=== PATIENT | female | born 1975 | race Caucasian/White ===

== ENCOUNTER 2020-08-07 13:20 | Emergency (ER) | payer BC, OTHER ==
--- NOTE | 2020-08-07 13:37 | EDM.PDOC ---
ED HPI GENERAL MEDICAL PROBLEM - General Stated Complaint: STITCHES CAME OUT OF INCISION Time Seen by Provider: 08/07/20 13:20 Source of Information: Reports: Patient, Family History Limitations: Reports: No Limitations - History of Present Illness INITIAL COMMENTS - FREE TEXT/NARRATIVE: c/o sutures out pt saw Dr Adrian in clinic 5d ago and had "lymph node" removed from R axilla subc sutures placed with SS on top, sutures came out, has apt with Dr Alvarado tomorrow - Related Data Allergies Allergy/AdvReac Type Severity Reaction Status Date / Time No Known Allergies Allergy Verified 06/16/20 10:16 ED ROS GENERAL - Review of Systems Review Of Systems: See Below Constitutional: Reports: No Symptoms HEENT: Reports: No Symptoms Respiratory: Reports: No Symptoms Cardiovascular: Reports: No Symptoms Endocrine: Reports: No Symptoms GI/Abdominal: Reports: No Symptoms : Reports: No Symptoms Musculoskeletal: Reports: No Symptoms Skin: Reports: Wound Neurological: Reports: No Symptoms Psychiatric: Reports: No Symptoms Hematologic/Lymphatic: Reports: No Symptoms Immunologic: Reports: No Symptoms ED EXAM, SKIN/RASH Exam: See Below Exam Limited By: No Limitations General Appearance: Alert, WD/WN, Other (emotional, crying) Skin: Other (no red/warm/swell/discharge, there is a ~4 cm horizontal incision below axillary crease and a ~5 cm horizontal incision on the inside of the RUE, 3 cm anteriorly has dehisced to a width of 1.5 cm, yet wound is quite dry, margins are clean, 2 SS are present on posterior aspect) Course - Re-Assessments/Exams Free Text/Narrative Re-Assessment/Exam: 08/07/20 13:39 healing well, no clinical concerns, f/u with Dr Adrian tomorrow Departure - Departure Time of Disposition: 13:32 Disposition: Home, Self-Care 01 Condition: Good Clinical Impression: Wound dehiscence - Discharge Information *PRESCRIPTION DRUG MONITORING PROGRAM REVIEWED*: Not Applicable *COPY OF PRESCRIPTION DRUG MONITORING REPORT IN PATIENT JAMIE: Not Applicable Instructions: Wound Dehiscence, Hidradenitis Suppurativa Additional Instructions: The surgery site is healing quite nicely. There is no infection. There is no fluid collection below the skin. Keep covered with a dressing for another week (unless Dr Adrian tells you differently), to prevent rubbing and friction. The skin will gradually pull together on its own over a period of several months. See Dr Adrian tomorrow as scheduled.
== END 2020-08-07 13:55 | disposition home or self-care (01) ==
LOC: FB.ED 13:20
DX: T81.31XA Disruption of external operation (surgical) wound, not elsewhere classified, initial encounter (principal)
CPT/HCPCS: 99282